=== PATIENT | female | born 1940 | race Caucasian/White ===

== ENCOUNTER → 2020-03-18 | Outpatient (CLI) | payer MEDICARE ==
[~2020-03-18] MED LIST: ACET-1600 PO; AMLO-211 PO; ATOR20TA37 PO; BENA10TA59 PO; CHOL100012 PO; IBUP200C75 PO; LORA-446 PO; METO-93 PO; MULT-658 PO; NORT25CA78 PO; fiorinal PO
[2020-03-18 15:51] LABS: ALBUMIN 3.7 g/dL (3.4-5.0); ANION GAP 7 mmol/L (5-15); CALCIUM 9.2 mg/dL (8.5-10.1); CHLORIDE 110 mmol/L (98-107)
[2020-03-18 15:55] LABS: ALANINE AMINOTRANSFERASE 31 U/L (12-78); ALKALINE PHOSPHATASE 92 U/L (45-117); BILIRUBIN,TOTAL 0.3 mg/dL (0.2-1.0); CREATININE 1.11 mg/dL (0.55-1.02); TOTAL PROTEIN 7.3 g/dL (6.4-8.2)
== END | disposition home or self-care (01) ==
LOC: STAR 13:53
PROVIDERS: ATTEND Obstetrics & Gynecology Female Pelvic Medicine and Reconstructive Surgery
DX: Z01.812 Encounter for preprocedural laboratory examination (principal); Z20.822 Contact with and (suspected) exposure to COVID-19; N39.3 Stress incontinence (female) (male); R10.2 Pelvic and perineal pain; N81.10 Cystocele, unspecified; N81.6 Rectocele; R94.31 Abnormal electrocardiogram [ECG] [EKG]
CPT/HCPCS: 80053; 87635; 93005

== ENCOUNTER 2020-03-23 05:37 | Day surgery (SDC) | payer MEDICARE ==
[~2020-03-23] VITALS: Ht 152.4 cm; Wt 81.8 kg
[2020-03-23] MEDS ORDERED: CHLORHEXIDINE 15 ML UDC MM STA (06:03)
[2020-03-23] MEDS ORDERED: LACTATED RINGERS 1,000 ML IV SCH (06:30)
[2020-03-23] MEDS ORDERED: FUROSEMIDE 20 MG/2 ML ONE (06:48)
[2020-03-23] MEDS ORDERED: BUPIVACAINE/PF 0.25% ONE (06:48)
[2020-03-23] MEDS ORDERED: EPINEPHRINE 1 MG/ML, 1ML ONE (06:49)
[2020-03-23] MEDS ORDERED: NEOMY/POLYMYXIN B GU IRR. 1 ML ONE (06:49)
[2020-03-23] MEDS ORDERED: FENTANYL PF 250 MCG/5ML ONE (07:13)
[2020-03-23] MEDS ORDERED: CEFAZOLIN 1,000 MG ONE (07:24)
[2020-03-23] MEDS ORDERED: PHENYLEPHRINE 10 MG/ML ONE (07:24)
[2020-03-23] MEDS ORDERED: PROPOFOL 10 MG/ML, 20ML ONE (07:24)
[2020-03-23] MEDS ORDERED: ONDANSETRON 2MG/ML, 2ML ONE (07:24)
[2020-03-23] MEDS ORDERED: DEXAMETHASONE 4 MG/ML, 1ML ONE (07:24)
[2020-03-23] MEDS ORDERED: DIPHENHYDRAMINE 50 MG/ML, 1ML IVPush PRN (08:00)
[2020-03-23] MEDS ORDERED: FENTANYL PF 100 MCG/2ML IV PRN (08:00)
[2020-03-23] MEDS ORDERED: LABETALOL 5MG/ML, 20ML IV PRN (08:00)
[2020-03-23] MEDS ORDERED: OXYcodone 5 MG/5 ML ORAL.SOL UDC PO PRN (08:00)
[2020-03-23] MEDS ORDERED: ACETAMINOPHEN 325 MG TABLET PO PRN (08:00)
[2020-03-23] MEDS ORDERED: PROMETHAZINE 25 MG/ML, 1ML IVPush PRN (08:00)
[2020-03-23] MEDS ORDERED: METOCLOPRAMIDE 5 MG/ML, 2ML IVPush PRN (08:00)
[2020-03-23] MEDS ORDERED: METOPROLOL 1 MG/ML, 5ML IV PRN (08:00)
[2020-03-23] MEDS ORDERED: LORazepam 2 MG/ML, 1ML IVPush PRN (08:00)
[2020-03-23] MEDS ORDERED: hydrALAzine 20 MG/ML, 1ML IV PRN (08:00)
[2020-03-23] MEDS ORDERED: ONDANSETRON 2MG/ML, 2ML IVPush PRN (08:00)
[2020-03-23] MEDS ORDERED: HALOPERIDOL 5 MG/ML IV PRN (08:00)
[2020-03-23] MEDS ORDERED: EPHEDRINE 50 MG/ML, 1ML IVPush PRN (08:00)
[2020-03-23] MEDS ORDERED: FENTANYL PF 100 MCG/2ML ONE (09:13)
[2020-03-23] MEDS ORDERED: LORazepam 2 MG/ML, 1ML ONE (09:30)
== END 2020-03-23 12:35 | disposition home or self-care (01) ==
LOC: OUT 05:37
PROVIDERS: ATTEND Obstetrics & Gynecology Female Pelvic Medicine and Reconstructive Surgery
DX: N81.89 Other female genital prolapse (principal); N39.46 Mixed incontinence; N81.6 Rectocele; N81.5 Vaginal enterocele; N81.10 Cystocele, unspecified; G43.909 Migraine, unspecified, not intractable, without status migrainosus; I10 Essential (primary) hypertension; K21.9 Gastro-esophageal reflux disease without esophagitis; M19.90 Unspecified osteoarthritis, unspecified site; Z88.2 Allergy status to sulfonamides; Z88.8 Allergy status to other drugs, medicaments and biological substances; Z88.1 Allergy status to other antibiotic agents; Z98.890 Other specified postprocedural states; Z72.0 Tobacco use; Z72.89 Other problems related to lifestyle; Z79.899 Other long term (current) drug therapy; Z90.710 Acquired absence of both cervix and uterus
CPT/HCPCS: 57265; 57282; 57288; C1771; J0171; J1940; J2060; J3010; J7120; J0690; J1100; J2405; J2704; J2370